=== PATIENT | male | born 1950 | race Caucasian/White ===

== ENCOUNTER → 2019-11-22 | Outpatient (CLI) | payer MEDICARE, OTHER ==
--- NOTE | 2019-11-22 15:27 | Diagnostic Imaging Report ---
EXAMINATION: CT Chest without contrast (lung screening). TECHNIQUE: Multiple contiguous axial images were obtained through the chest without the use of intravenous contrast according to lung cancer screening protocol. All CT scans use one or more of the following dose optimizing techniques: automated exposure control, MA and/or KvP adjustment based on a patient size and exam type, or iterative reconstruction. HISTORY: 30 pack year history of smoking. COMPARISON: None available. FINDINGS: There is no edema or pneumonia. No pleural effusion. No pneumothorax. No suspicious nodules. Heart size is normal. No pericardial effusion. Aorta is normal in caliber. There is no axillary or supraclavicular lymphadenopathy. There is no mediastinal lymphadenopathy. There are mild coronary artery calcifications. Limited views of the upper abdomen are normal. There are no suspicious osseus lesions. IMPRESSION: 1. No suspicious pulmonary nodules. LUNG-RADS CATEGORY: 1 MODIFIER: None. OTHER SIGNIFICANT FINDINGS: None. Dictated by: Dictated on workstation # [id number]
== END ==
LOC: RAD 11:06
PROVIDERS: ATTEND Family Medicine
DX: Z12.2 Encounter for screening for malignant neoplasm of respiratory organs (principal); Z87.891 Personal history of nicotine dependence

== ENCOUNTER 2020-12-14 05:32 | Outpatient (RCR) | payer MEDICARE, OTHER ==
[~2020-12-14] VITALS: Ht 165.1 cm; Wt 89.4 kg
[~2020-12-14 05:32] MED LIST: NAPR-1070 PO
== END 2020-12-14 14:37 | disposition home or self-care (01) ==
LOC: PREOP 05:32
PROVIDERS: ATTEND Surgery
DX: Z01.812 Encounter for preprocedural laboratory examination (principal); K29.50 Unspecified chronic gastritis without bleeding; R19.5 Other fecal abnormalities; Z20.822 Contact with and (suspected) exposure to COVID-19
CPT/HCPCS: 87635

== ENCOUNTER 2020-12-18 09:12 | Day surgery (SDC) | payer MEDICARE, OTHER ==
[~2020-12-18] VITALS: Ht 165.1 cm; Wt 89.4 kg
[2020-12-18] MEDS ORDERED: LACTATED RINGERS 1,000 ML IV STA (09:18)
[2020-12-18] MEDS ORDERED: LACTATED RINGERS 1,000 ML IV ONE (09:19)
[2020-12-18] MEDS ORDERED: HURRICAINE EXT TUBE (BENZOCAINE) XX PRN (09:30)
[2020-12-18 09:55] VITALS: BP 145/77
[2020-12-18] MEDS ORDERED: PROPOFOL INJECTION 50 ML IV ONE (10:10)
--- NOTE | 2020-12-18 10:13 | Progress Note-Pre Operative ---
Pre-Operative Progress Note H&P Reviewed The H&P was reviewed, patient examined and no changes noted. Time Seen by Provider: 10:09 Date H&P Reviewed: Dec 18, 2020 Time H&P Reviewed: 10:10 Pre-Operative Diagnosis: Chronic Gastritis, +CologADRIEL Cruz DO Dec 18, 2020 10:13
[2020-12-18] MEDS ORDERED: MIDAZOLAM 2 MG/2 ML (VERSED) VIAL ONE (10:18)
[2020-12-18] MEDS ORDERED: HURRICAINE EXT TUBE (BENZOCAINE) ONE (10:19)
[2020-12-18] MEDS ORDERED: proPOfol 200 MG/20 ML (DIPRIVAN) VIAL IV ONE (10:51)
[2020-12-18 11:10] VITALS: BP 126/76
[2020-12-18 11:15] VITALS: BP 124/73
[2020-12-18 11:20] VITALS: BP_SYST 121; BP_SYST 126; BP_DIAS 74; BP_DIAS 76
[2020-12-18 11:46] VITALS: BP 146/83
[2020-12-18 11:47] VITALS: BP 146/83
--- NOTE | 2020-12-18 11:56 | Progress Note-Post Operative ---
Post-Operative Progess Note Surgeon (s)/Test Pilot (s) Surgeon ADRIEL VELIZ DO Test Pilot: ADRIANE Rios Pre-Operative Diagnosis Chronic Gastritis, +Cologuard Post-Operative Diagnosis Duodenal ulcer Gastritis Sliding Hiatal hernia Polyps int hemorrhoids Procedure & Operative Findings Date of Procedure 12/18/20 Procedure Performed/Findings EGD with bx Colon with snare Colon with hot bx Anesthesia Type IV sedation by POLICE ACADEMY PROGRAM COORDINATOR Estimated Blood Loss Estimated blood loss (mL): scant Specimens/Packing Specimens Removed duodenal bx antral bx body of stomach bx GE jxn bx transvers colon polypx2 asc colon polyp sigmoid colon polyp rectal polyp ADRIEL VELIZ DO Dec 18, 2020 11:56
[2020-12-18] MEDS ORDERED: PANT40TA2 PO (12:00)
[2020-12-18] MEDS ORDERED: SUCR1TAB36 PO (12:00)
--- NOTE | 2020-12-18 12:01 | Endoscopy Discharge Instruct ---
Endo Procedure/Findings Findings 1.: Duodenal Ulcer, Gastritis 2.: Hiatal Hernia 3.: Polyp 4.: Internal Hemorrhoids Discharge Instructions - Activity: You might feel a little sleepy until tomorrow. This is due to the medicine you received to relax you. Until tomorrow, you should: NOT drive a car, operate machinery or power tools. NOT drink any alcoholic beverages. NOT make any important decisions or sign importortant papers. Do not return to work until tomorrow, unless otherwise instructed. Resume previous activities tomorrow. Diet: Start by taking liquids. If you tolerate liquids, advance to solid food. 1.: Colonoscopy in 1 year 2.: EGD in 6-8 weeks Notify Physician - If you experience excessive bleeding, unusual abdominal pain, fever, or chest pain, contact your doctor immediately. ADRIEL VELIZ DO Dec 18, 2020 12:01
--- NOTE | 2020-12-18 13:14 | Anesthesia-General Post-Op ---
MAC Patient Condition Mental Status/LOC: Same as Preop Cardiovascular: Satisfactory Nausea/Vomiting: Absent Respiratory: Satisfactory Pain: Controlled Complications: Absent Post Op Complications Complications None Follow Up Care/Instructions Patient Instructions None needed. Anesthesiology Discharge Order Discharge Order Patient is doing well, no complaints, stable vital signs, no apparent adverse anesthesia problems. No complications reported per nursing. KAILA KEARNEY CRNA Dec 18, 2020 13:14
--- NOTE | 2020-12-18 23:31 | OPERATIVE REPORT ---
DATE OF SERVICE: PREOPERATIVE DIAGNOSES: 1. Chronic gastritis. 2. Positive Cologuard. POSTOPERATIVE DIAGNOSES: Duodenal ulcer, gastritis, sliding hiatal hernia as well as multiple colon polyps and internal hemorrhoids. PROCEDURES: 1. EGD with biopsy. 2. Colonoscopy with snare polypectomy. 3. Colonoscopy with hot biopsy. SURGEON: Matt Escalona, DO GEOTHERMAL POWERPLANT MECHANIC HELPER: Justin Hall, MS3. ANESTHESIA: IV sedation by the GYM SUPERVISOR. SPECIMEN: Biopsy from the duodenum, biopsy of the antrum, biopsy of body of stomach and biopsy of the GE junction as well as 2 transverse colon polyp, one ascending colon polyp, one sigmoid polyp and one rectal polyp. BLOOD LOSS: Scant. FLUIDS: Per anesthesia. POSTOPERATIVE CONDITION: Stable. INDICATION FOR PROCEDURE: The patient is a 70-year-old male, who has been having chronic gastritis, reflux symptoms, needed a workup as well, he had a positive Cologuard, so needed a colonoscopy. FINDINGS: The patient had what looked like an ulcer in the duodenum, had some gastritis and sliding hiatal hernia. In the colon, he had multiple polyps and some internal hemorrhoids. PROCEDURE NOTE: After informed consent was obtained, the patient was brought to the endoscopy suite, placed in bed in left lateral decubitus position. He was administered IV sedation by the GYM SUPERVISOR who then monitored his vitals the entire time, heart rate, blood pressure and pulse ox and the scope was inserted, started with the EGD, placed the scope down the mouth through the esophagus and into the stomach, noted some inflammation in the antrum, pushing the duodenum and noted a lot of inflammation of duodenum, took pictures and then did biopsies of what looked like an ulcer in the duodenum, pulled back and did a biopsy of the antrum. Retroflexed the scope, saw small sliding hiatal hernia and then did a biopsy of the body of stomach and then looked like there were some changes at the GE junction, so pulled up and did 2 biopsies of the GE junction, then pushed the scope back into the stomach, suctioned all the air out and then pulled the scope up the esophagus and out the mouth. Switched camera, switched gloves, went down below, started the colonoscopy, started pushing in and found 2 polyps in the transverse colon. These were relatively large pedunculated able to remove these with a snare and then continued down in the ascending colon, saw a very flat polyp, able to get this with the hot biopsy, removed in 2 bites with a hot biopsy. Final able to get to the cecum, took a picture of appendiceal orifice, noted the ileocecal valve and then slowly withdrew the scope insufflating the circumferential maher. Looking at the cecum, up the ascending colon to the hepatic flexure, then down the transverse colon, to the splenic flexure, into the descending colon and down into the sigmoid. In the sigmoid, saw another very flat polyp, I elected to do another hot biopsy of this and then in the rectum, saw a larger polyp, wanted to completely remove this, so did another snare polypectomy, saw what looked like flat polyps, not sure whether these were adenomas or hyperplastic, but took a picture of these in the rectum as well. Retroflexed in the rectal vault and saw some small internal hemorrhoids. I finally removed the scope. The patient tolerated the procedure. He was recovered in endoscopy suite. Job ID: [id number] DocumentID: [id number] Dictated Date: 12/18/2020 22:28:45 Him Assistant Date: 12/18/2020 23:30:56 Dictated By: MATT ESCALONA DO MTDJasmin
== END 2020-12-18 12:20 | disposition home or self-care (01) ==
LOC: ENDO 09:12
PROVIDERS: ATTEND Surgery
DX: D12.2 Benign neoplasm of ascending colon (principal); D12.3 Benign neoplasm of transverse colon; K63.5 Polyp of colon; K62.1 Rectal polyp; K29.90 Gastroduodenitis, unspecified, without bleeding; K44.9 Diaphragmatic hernia without obstruction or gangrene; K64.8 Other hemorrhoids; K26.9 Duodenal ulcer, unspecified as acute or chronic, without hemorrhage or perforation; Z80.8 Family history of malignant neoplasm of other organs or systems; Z80.3 Family history of malignant neoplasm of breast; F17.210 Nicotine dependence, cigarettes, uncomplicated; M19.90 Unspecified osteoarthritis, unspecified site

== ENCOUNTER → 2021-02-20 | Outpatient (CLI) | payer MEDICARE, OTHER ==
[~2021-02-20] MED LIST changes: +PANT40TA2 PO; +SUCR1TAB36 PO
--- NOTE | 2021-02-20 14:42 | Diagnostic Imaging Report ---
EXAMINATION: CT chest without contrast (lung screening). TECHNIQUE: Multiple contiguous axial images were obtained through the chest without the use of intravenous contrast according to lung cancer screening protocol. All CT scans use one or more of the following dose optimizing techniques: automated exposure control, MA and/or KvP adjustment based on patient size and exam type or iterative reconstruction. HISTORY: 50 pack year history of smoking. COMPARISON: 11/22/2019. FINDINGS: There is no edema or pneumonia. No pleural effusion. No pneumothorax. No suspicious nodules. There is no axillary or supraclavicular lymphadenopathy. There is no mediastinal lymphadenopathy. Heart size is normal. There are mild coronary artery calcifications. No pericardial effusion. Aorta is normal in caliber. Limited views of the upper abdomen are unremarkable. There are no suspicious osseous lesions. IMPRESSION: 1. No suspicious pulmonary nodules. LUNG-RADS CATEGORY: 1 MODIFIER: None. Dictated by: Dictated on workstation # [id number]
== END ==
LOC: RAD 13:04
PROVIDERS: ATTEND Family Medicine
DX: Z12.2 Encounter for screening for malignant neoplasm of respiratory organs (principal); F17.210 Nicotine dependence, cigarettes, uncomplicated
CPT/HCPCS: 71271

== ENCOUNTER 2021-04-12 05:32 | Outpatient (RCR) | payer MEDICARE, OTHER ==
[~2021-04-12] VITALS: Ht 165.1 cm; Wt 89.4 kg
== END 2021-04-12 13:05 | disposition home or self-care (01) ==
LOC: PREOP 05:32
PROVIDERS: ATTEND Surgery
DX: Z01.812 Encounter for preprocedural laboratory examination (principal); K26.9 Duodenal ulcer, unspecified as acute or chronic, without hemorrhage or perforation; Z20.822 Contact with and (suspected) exposure to COVID-19
CPT/HCPCS: 87635

== ENCOUNTER 2021-04-16 11:18 | Day surgery (SDC) | payer MEDICARE, OTHER ==
[2021-04-16] VITALS (10 sets, daily range): BP systolic 117–154; BP diastolic 55–93
[~2021-04-16] VITALS: Ht 165.1 cm; Wt 89.4 kg
[2021-04-16] MEDS ORDERED: LACTATED RINGERS 1,000 ML IV STA (11:32)
--- NOTE | 2021-04-16 11:44 | Progress Note-Pre Operative ---
Pre-Operative Progress Note H&P Reviewed The H&P was reviewed, patient examined and no changes noted. Time Seen by Provider: 11:42 Date H&P Reviewed: Apr 16, 2021 Time H&P Reviewed: 11:42 Pre-Operative Diagnosis: Hx of duodenal ulcer ADRIEL VELIZ DO Apr 16, 2021 11:44
[2021-04-16] MEDS ORDERED: HURRICAINE EXT TUBE (BENZOCAINE) XX PRN (11:45)
[2021-04-16] MEDS ORDERED: PROPOFOL INJECTION 50 ML IV ONE (12:24)
[2021-04-16] MEDS ORDERED: MIDAZOLAM 2 MG/2 ML (VERSED) VIAL ONE (12:24)
--- NOTE | 2021-04-16 12:48 | Progress Note-Post Operative ---
Post-Operative Progess Note Surgeon (s)/Full Service Supervisor (s) Surgeon ADRIEL VELIZ DO Full Service Supervisor: none Pre-Operative Diagnosis Hx of duodenal ulcer Post-Operative Diagnosis Duodenitis Gastritis Hiatal Hernia Esophagitis Procedure & Operative Findings Date of Procedure 04/16/21 Procedure Performed/Findings PROCEDURE NOTE: After informed consent was obtained, the patient was brought to the endoscopy suite, placed in bed in left lateral decubitus position. He was administered IV sedation by the PLUMBERS AND TOP HELPERS who then monitored her vitals the entire time, heart rate, blood pressure and pulse ox and the scope was inserted down the mouth through the esophagus into the stomach. On the way down, noted some mild esophagitis, took a picture, pushed into the stomach, pushed past the antrum into the duodenum. Duodenum had moderate to severe duodenits; elected to do a biopsy of this. Pulled back and did a biopsy of antrum, then retroflexed the scope, saw hiatal hernia, took a picture of this and then pulled the scope into the GE junction, took another picture of the hiatal hernia and then did a biopsy of the GE junction. Pushed the scope back into the stomach, suctioned all the air out of the stomach and then pulled the scope up the esophagus, took some pictures in the esophagus. There were no ulcers and at this point pulled the scope up the esophagus and out the mouth. The patient tolerated the procedure, and he was recovered in the endoscopy suite. Anesthesia Type IV sedation by PLUMBERS AND TOP HELPERS Estimated Blood Loss Estimated blood loss (mL): scant Specimens/Packing Specimens Removed duodenal bx antral bx body of stomach bx GE jxn bx ADRIEL VELIZ DO Apr 16, 2021 12:48
--- NOTE | 2021-04-16 12:49 | Endoscopy Discharge Instruct ---
Endo Procedure/Findings Findings 1.: Other Findings (duodenitis) 2.: Gastritis 3.: Hiatal Hernia Discharge Instructions - Activity: You might feel a little sleepy until tomorrow. This is due to the medicine you received to relax you. Until tomorrow, you should: NOT drive a car, operate machinery or power tools. NOT drink any alcoholic beverages. NOT make any important decisions or sign importortant papers. Do not return to work until tomorrow, unless otherwise instructed. Resume previous activities tomorrow. Diet: Start by taking liquids. If you tolerate liquids, advance to solid food. 1.: EGD in 6-8 weeks Notify Physician - If you experience excessive bleeding, unusual abdominal pain, fever, or chest pain, contact your doctor immediately. ADRIEL VELIZ DO Apr 16, 2021 12:49
--- NOTE | 2021-04-16 13:26 | Anesthesia-General Post-Op ---
MAC Patient Condition Mental Status/LOC: Same as Preop Cardiovascular: Satisfactory Nausea/Vomiting: Absent Respiratory: Satisfactory Pain: Controlled Complications: Absent Post Op Complications Complications None Follow Up Care/Instructions Patient Instructions None needed. Anesthesiology Discharge Order Discharge Order Patient is doing well, no complaints, stable vital signs, no apparent adverse anesthesia problems. No complications reported per nursing. TC MEJIA CRNA Apr 16, 2021 13:25
== END 2021-04-16 14:00 | disposition home or self-care (01) ==
LOC: ENDO 11:18
PROVIDERS: ATTEND Surgery
DX: K29.90 Gastroduodenitis, unspecified, without bleeding (principal); K44.9 Diaphragmatic hernia without obstruction or gangrene; K21.00 Gastro-esophageal reflux disease with esophagitis, without bleeding; L29.0 Pruritus ani; M19.90 Unspecified osteoarthritis, unspecified site; F17.210 Nicotine dependence, cigarettes, uncomplicated; Z79.899 Other long term (current) drug therapy
CPT/HCPCS: 88305

== ENCOUNTER 2021-12-26 13:12 | Inpatient (IN) | payer MEDICARE, OTHER ==
[~2021-12-26] VITALS: Ht 170 cm; Wt 85.0 kg
[2021-12-26] MEDS ORDERED: FAMOTIDINE 20MG/2ML IV (PEPCID) IV STA (13:34)
--- NOTE | 2021-12-26 13:39 | ED Chest Pain ---
General Chief Complaint: Chest Pain Stated Complaint: CHEST PAIN Nursing Triage Note: PT AMB TO RM 6 WITH COMPLAINT OF INTERMITTENT CP THAT STARTED 4-5 DAYS AGO. STATES WENT TO [facility] WALK[facility] AND WAS SENT OVER TO ER FOR FURTHER EVALUATION. Source: patient Exam Limitations: no limitations History of Present Illness Date Seen by Provider: Dec 26, 2021 Time Seen by Provider: 13:24 Initial Comments Patient to the ER by private conveyance chief complaint of chest pain intermittent substernal nonradiating for the last 4 to 5 days. He says sometimes his shoulders ache bilaterally. No jaw pain no numbness or tingling or paresthesias. No shortness of air but has had nasal congestion sore throat and a mild nonproductive cough. His episodes usually last a couple hours of pain. This present one is going on for an hour and a half prior to arrival. He did not take anything for it. He does not have a history of hypertension, hyperlipidemia, hypothyroidism, diabetes or prior coronary artery disease. He is followed by [facility]. He does smoke a pack of cigarettes per day. He has had clinic pulmonary function testing and no history of COPD. No diarrhea dysuria or vomiting. He does have some nausea. He has a history of GERD but no anxiety. No trauma to his chest. Allergies and Home Medications Allergies Coded Allergies: No Known Drug Allergies (Unverified , 12/11/20) Patient Home Medication List Home Medication List Reviewed: Yes Pantoprazole Sodium (Protonix) 40 Mg Tablet.dr, 40 MG PO DAILY Prescribed by: ADRIEL VELIZ on 12/18/20 1200 Sucralfate (Carafate) 1 Gm Tablet, 1 GM PO ACHS Prescribed by: ADRIEL VELIZ on 12/18/20 1200 Review of Systems Review of Systems Constitutional: No chills, No fever, No malaise EENTM: No Blurred Vision, No Double Vision Respiratory: Denies Cough; Shortness of Air Cardiovascular: Chest Pain; Denies Lightheadedness, Denies Palpitations, Denies Syncope Gastrointestinal: Denies Constipated, Denies Diarrhea, Denies Nausea Genitourinary: Denies Burning, Denies Discharge, Denies Drainage Musculoskeletal: No back pain, No joint pain All Other Systems Reviewed Negative Unless Noted: Yes Past Tdnngmd-Iesvyk-Didgtn Hx Patient Social History Tobacco Use?: Yes Tobacco type used: Cigarettes Smoking Status: Current Everyday Smoker Use of E-Cig and/or Vaping dev: No Substance use?: No Alcohol Use?: No Pt feels they are or have been: No Immunizations Up To Date Influenza Vaccine Up-to-Date: Yes; Up-to-Date First/Initial COVID19 Vaccinat: 2020 Second COVID19 Vaccination Andrew: 2020 Third COVID19 Vaccination Date: 2020 COVID19 Vaccine Surg Rn: RADHA Past Medical History Surgeries: Yes Testicular Respiratory: No Cardiac: No Neurological: No Sexually Transmitted Disease: No HIV/AIDS: No Genitourinary: No Gastrointestinal: No Musculoskeletal: No Endocrine: No HEENT: Yes (DENTURES/GLASSES) Cancer: No Psychosocial: No Integumentary: No Blood Disorders: No Physical Exam Vital Signs Vital Signs - First Documented 12/26/21 13:14 Pulse 71 Resp 27 B/P (MAP) 156/92 (113) Pulse Ox 98 O2 Delivery Room Air Capillary Refill : Less Than 3 Seconds Height, Weight, BMI Height: '" Weight: lbs. oz. kg; 31.00 BMI Method: General Appearance: No Apparent Distress, WD/WN HEENT: PERRL/EOMI, Pharynx Normal, Moist Mucous Membranes Neck: Full Range of Motion, Normal Inspection Respiratory: Chest Non Tender, Lungs Clear, Normal Breath Sounds, No Accessory Muscle Use, No Respiratory Distress Cardiovascular: Regular Rate, Rhythm, Normal Peripheral Pulses Gastrointestinal: Normal Bowel Sounds, Non Tender, Soft Extremity: Normal Capillary Refill, Normal Inspection, No Pedal Edema Neurologic/Psychiatric: Alert, Oriented x3 Skin: Normal Color, Warm/Dry Progress/Results/Core Measures Results/Orders Lab Results Laboratory Tests Test 12/26/21 13:05 12/26/21 13:35 Range/Units White Blood Count 7.7 4.3-11.0 10^3/uL Red Blood Count 4.65 4.30-5.52 10^6/uL Hemoglobin 15.8 13.3-17.7 g/dL Hematocrit 45 40-54 % Mean Corpuscular Volume 96 80-99 fL Mean Corpuscular Hemoglobin 34 25-34 pg Mean Corpuscular Hemoglobin Concent 35 32-36 g/dL Red Cell Distribution Width 11.9 10.0-14.5 % Platelet Count 206 130-400 10^3/uL Mean Platelet Volume 8.9 L 9.0-12.2 fL Immature Granulocyte % (Auto) 0 % Neutrophils (%) (Auto) 57 42-75 % Lymphocytes (%) (Auto) 29 12-44 % Monocytes (%) (Auto) 6 0-12 % Eosinophils (%) (Auto) 7 0-10 % Basophils (%) (Auto) 1 0-10 % Neutrophils # (Auto) 4.4 1.8-7.8 10^3/uL Lymphocytes # (Auto) 2.3 1.0-4.0 10^3/uL Monocytes # (Auto) 0.5 0.0-1.0 10^3/uL Eosinophils # (Auto) 0.5 H 0.0-0.3 10^3/uL Basophils # (Auto) 0.1 0.0-0.1 10^3/uL Immature Granulocyte # (Auto) 0.0 0.0-0.1 10^3/uL Prothrombin Time 13.3 12.2-14.7 SEC INR Comment 1.0 0.8-1.4 Activated Partial Thromboplast Time 30 24-35 SEC D-Dimer 0.33 0.00-0.49 UG/ML Sodium Level 140 135-145 MMOL/L Potassium Level 4.5 3.6-5.0 MMOL/L Chloride Level 108 H 98-107 MMOL/L Carbon Dioxide Level 20 L 21-32 MMOL/L Anion Gap 12 5-14 MMOL/L Blood Urea Nitrogen 12 7-18 MG/DL Creatinine 1.02 0.60-1.30 MG/DL Estimat Glomerular Filtration Rate 78 BUN/Creatinine Ratio 12 Glucose Level 112 H 70-105 MG/DL Calcium Level 9.8 8.5-10.1 MG/DL Corrected Calcium 9.5 8.5-10.1 MG/DL Magnesium Level 2.2 1.6-2.4 MG/DL Total Bilirubin 0.6 0.1-1.0 MG/DL Aspartate Amino Transf (AST/SGOT) 25 5-34 U/L Alanine Aminotransferase (ALT/SGPT) 30 0-55 U/L Alkaline Phosphatase 61 40-136 U/L Myoglobin 52.9 10.0-92.0 NG/ML Troponin I 0.544 *H <0.028 NG/ML C-Reactive Protein High Sensitivity 0.47 0.00-0.50 MG/DL B-Type Natriuretic Peptide 26.3 <100.0 PG/ML Total Protein 7.8 6.4-8.2 GM/DL Albumin 4.4 3.2-4.5 GM/DL Lipase 20 8-78 U/L Influenza Type A (RT-PCR) Not Detected Not Detecte Influenza Type B (RT-PCR) Not Detected Not Detecte SARS-CoV-2 RNA (RT-PCR) Not Detected Not Detecte My Orders Orders - ASHLEY PULLIAM Cbc With Automated Diff (12/26/21 13:34) Magnesium (12/26/21 13:34) Chest 1 View, Ap/Pa Only (12/26/21 13:34) Ekg Tracing (12/26/21 13:34) Comprehensive Metabolic Panel (12/26/21 13:34) Myoglobin Serum (12/26/21 13:34) Protime With Inr (12/26/21 13:34) Partial Thromboplastin Time (12/26/21 13:34) O2 (12/26/21 13:34) Monitor-Rhythm Ecg Trace Only (12/26/21 13:34) Ed Iv/Invasive Line Start (12/26/21 13:34) Lipase (12/26/21 13:34) Bnp Andre (12/26/21 13:34) Troponin I [place] (12/26/21 13:34) Nitroglycerin 0.4 Mg Btl 25's (Nitrostat (12/26/21 13:45) Aspirin Chewable Tablet (Baby Aspirin Ch (12/26/21 13:45) Lidocaine 2% Viscous 15 Ml (Xylocaine Vi (12/26/21 13:45) Antacid Suspension (Mylanta Suspension (12/26/21 13:45) Famotidine Injection (Pepcid Injection) (12/26/21 13:34) Covid 19 Inhouse Test (12/26/21 13:34) Influenza A And B By Pcr (12/26/21 13:34) Hs C Reactive Protein (12/26/21 13:34) Ondansetron Injection (Zofran Injectio (12/26/21 13:45) Fibrin Degradation Products (12/26/21 13:05) Enoxaparin Injection (Lovenox Injectio (12/26/21 14:45) Clopidogrel Tablet (Plavix Tablet) (12/26/21 14:45) Medications Given in ED Vital Signs/I&O 12/26/21 13:14 Pulse 71 Resp 27 B/P (MAP) 156/92 (113) Pulse Ox 98 O2 Delivery Room Air Blood Pressure Mean: 113 Progress Progress Note : Time: 14:45 Progress Note Patient rated his pain is modest 4 out of 10, 6 out of 10 at its worst. Gave him a GI cocktail which brought his pain down to a 2 out of 10. Elevated troponin makes it suspicious for an NSTEMI and we discussed staying in the hospi jo to get cardiac catheterization and he is in agreement with this plan. We discussed the case with Dr. Oleary who recommends Plavix, Lovenox, aspirin and n.p.o. until he sees him. Initial ECG Impression Date: Dec 26, 2021 Initial ECG Impression Time: 13:18 Initial ECG Rate: 63 Initial ECG Rhythm: Normal Sinus Initial ECG Intervals: Normal Initial ECG Impression: Normal, Nonspecific Changes Comment Normal sinus rhythm without clinically relevant ST elevation or depression. LVH noticed. Departure Communication (Admissions) Time/Spoke to Admitting Phy: 14:40 Discussed the case with Dr. Masno who agrees with cardiac consultation and admitting the patient to the ICU for management. Time/Spoke to Consulting Phy: 14:35 Discussed the case with Dr. Oleary who recommends n.p.o. until after he sees h im. Plavix 300 mg. Aspirin 325 mg. Lovenox weight-based 1 mg/kg. Impression Primary Impression: NSTEMI (non-ST elevated myocardial infarction) Disposition: ADMITTED INPATIENT Condition: Stable Admissions Decision to Admit Reason: Admit from ER (General) Decision to Admit/Date: Dec 26, 2021 Time/Decision to Admit Time: 14:30 Departure-Patient Inst. Referrals: LIGIA LAYTON MD (PCP/Family) Primary Care Physician ASHLEY PULLIAM Dec 26, 2021 13:39
[2021-12-26 13:42] LABS: BASOPHILS # (AUTO) 0.1 10^3/uL (0.0-0.1); BASOPHILS % (AUTO) 1 % (0-10); EOSINOPHILS # (AUTO) 0.5 10^3/uL (0.0-0.3); EOSINOPHILS % (AUTO) 7 % (0-10); HEMATOCRIT 45 % (40-54); HEMOGLOBIN 15.8 g/dL (13.3-17.7); LYMPHOCYTES # (AUTO) 2.3 10^3/uL (1.0-4.0); LYMPHOCYTES % (AUTO) 29 % (12-44); MEAN CORPUSCULAR HEMOGLOBIN 34 pg (25-34); MEAN CORPUSCULAR HGB CONC 35 g/dL (32-36); MEAN CORPUSCULAR VOLUME 96 fL (80-99); MEAN PLATELET VOLUME 8.9 fL (9.0-12.2); MONOCYTES # (AUTO) 0.5 10^3/uL (0.0-1.0); MONOCYTES % (AUTO) 6 % (0-12); NEUTROPHILS # (AUTO) 4.4 10^3/uL (1.8-7.8); NEUTROPHILS % (AUTO) 57 % (42-75); PLATELET COUNT 206 10^3/uL (130-400); WHITE BLOOD COUNT 7.7 10^3/uL (4.3-11.0)
[2021-12-26] MEDS ORDERED: ANTACID SUSP 30 ML UDC (MYLANTA) PO ONE (13:45)
[2021-12-26] MEDS ORDERED: LIDOCAINE 2% VISCOUS 15 ML UDC PO ONE (13:45)
[2021-12-26] MEDS ORDERED: NITROGLYCERIN 0.4 MG SL TABS BTL 25'S SL PRN ×2 (13:45→16:45)
[2021-12-26] MEDS ORDERED: ASPIRIN 81 MG CHEW (CHILDREN'S ASA) PO ONE (13:45)
[2021-12-26] MEDS ORDERED: ONDANSETRON 4 MG/2 ML (SDV) Z0FRAN IVP ONE (13:45)
[2021-12-26 13:50] LABS: ALBUMIN 4.4 GM/DL (3.2-4.5)
[2021-12-26 13:51] LABS: POTASSIUM 4.5 MMOL/L (3.6-5.0)
[2021-12-26 13:52] LABS: CALCIUM 9.8 MG/DL (8.5-10.1)
[2021-12-26 13:53] LABS: TOTAL PROTEIN 7.8 GM/DL (6.4-8.2)
[2021-12-26 13:54] LABS: FIBRIN DEGRADATION PRODUCTS 0.33 UG/ML (0.00-0.49); PROTHROMBIN TIME PATIENT 13.3 SEC (12.2-14.7)
[2021-12-26 13:55] LABS: BILIRUBIN,TOTAL 0.6 MG/DL (0.1-1.0)
[2021-12-26 13:57] LABS: CREATININE SERUM 1.02 MG/DL (0.60-1.30)
[2021-12-26 13:59] LABS: MAGNESIUM 2.2 MG/DL (1.6-2.4)
--- NOTE | 2021-12-26 14:10 | Diagnostic Imaging Report ---
INDICATION: Chest pain. AP view of the chest is obtained. FINDINGS: Heart size and pulmonary vascularity are within normal limits, and the lungs are clear, bilaterally. IMPRESSION: Unremarkable chest. Dictated by: Dictated on workstation # [id number]
[2021-12-26] MEDS ORDERED: CLOPIDOGREL 300 MG (PLAVIX) TABLET PO ONE ×2 (14:45→18:37)
[2021-12-26] MEDS ORDERED: ENOXAPARIN 80 MG/0.8 ML (LOVENOX) SYR SC ONE (14:45)
[2021-12-26 15:45] VITALS: BP 142/89
--- NOTE | 2021-12-26 15:49 | Consultation-Cardiology ---
HPI-Cardiology Cardiology Consultation: Date of Consultation 12/26/21 Time Seen by a Provider: 15:50 Date of Admission 12-26-21 Attending Physician Sari Mason MD Admitting Physician Flaquita Trevizo MD Consulting Physician Ernesto Oleary MD HPI: Chief Complaint: NSTEMI Mr. Cope is a 71 yr old male admitted to ICU 4 from the ED with NSTEMI. He reports approx 4 days day ago he developed chest pressure, tightness across his chest. The discomfort would come on without r/t activity. He reports the pain would last from 3 minutes to as long as an hour and then resolve. He denies any assoc symptoms of n/v or diaphoresis. No c/o SOB. No c/o palpitations, syncope or near syncope. He reports he received nitro in the ED, which has resulted in complete resolution of his chest pain at this time. No c/o LE swelliing. He is currently pain free. Review of Systems-Cardiology Review of Systems Constitutional: No chills, No fever, No malaise, No tiredness Eyes: No vision change Ears/Nose/Throat: No epistaxis, No recent hearing loss Respiratory: As described under HPI Cardiovascular: As described under HPI Gastrointestinal: As described under HPI Genitourinary: No dysuria, No hematuria Musculoskeletal: no symptoms reported Skin: No rash on exposed areas, No ulcerations on exposed areas Psychiatric/Neurological: No anxiety, No depression, No seizure, No focal weakness, No syncope Hematologic: No bleeding abnormalities OIN-Lxfxas-Yopwrq Hx Patient Social History Smoking Status: Current Everyday Smoker 2nd Hand Smoke Exposure: No Have you traveled recently?: No Alcohol Use?: No Pt feels they are or have been: No Tobacco type used: Cigarettes Past Medical History PMH As described under Assessment. Family Medical History Family Medical History: He reports brothers x 2 with heart dz Allergies and Home Medications Allergies Coded Allergies: No Known Drug Allergies (Unverified , 12/11/20) Patient Home Medication List Pantoprazole Sodium (Protonix) 40 Mg Tablet.dr, 40 MG PO DAILY Prescribed by: ADRIEL VELIZ on 12/18/20 1200 Sucralfate (Carafate) 1 Gm Tablet, 1 GM PO ACHS Prescribed by: ADRIEL VELIZ on 12/18/20 1200 Physical Exam-Cardiology Physical Exam Vital Signs/I&O 12/26/21 12/26/21 12/26/21 12/27/21 21:00 22:00 23:00 00:00 Pulse 60 59 55 67 Resp 20 13 13 20 B/P (MAP) 151/80 145/78 143/85 129/91 Pulse Ox 98 97 97 99 O2 Delivery Room Air Room Air Room Air Room Air 12/27/21 12/27/21 12/27/21 12/27/21 01:00 01:00 02:00 03:00 Pulse 60 60 76 63 Resp 18 19 30 B/P (MAP) 133/74 136/79 126/63 Pulse Ox 97 97 94 O2 Delivery Room Air Room Air Room Air 12/27/21 12/27/21 12/27/21 12/27/21 04:00 05:00 06:00 07:28 Temp 36.4 Pulse 52 55 54 Resp 16 20 18 B/P (MAP) 123/61 125/57 119/63 Pulse Ox 96 96 97 O2 Delivery Room Air Room Air Room Air 12/27/21 00:00 Intake Total 0 ml Output Total 250 ml Balance -250 ml Capillary Refill : Less Than 3 Seconds Constitutional: AAO x 3, well-developed, well-nourished HEENT: PERRL, hearing is well preserved, oral hygience is good Neck: No carotid bruit; carotid pulses are 2 + bilaterally Respiratory: No accessory muscle use, No respiratory distress; chest expansion is symmetric, chest is bilaterally symmetric, lungs clear to auscultation Cardiovascular: regular rate-rhythm; No JVD; S1 and S2 Gastrointestinal: No tender; soft, round, audible bowel sounds Extremities: no lower extremity edema bilateral Neurologic/Psychiatric: other (moves all extremities) Skin: No rash on exposed areas, No ulcerations on exposed areas Data Review Labs Laboratory Tests 12/26/21 13:05: White Blood Count 7.7, Red Blood Count 4.65, Hemoglobin 15.8, Hematocrit 45, Mean Corpuscular Volume 96, Mean Corpuscular Hemoglobin 34, Mean Corpuscular Hemoglobin Concent 35, Red Cell Distribution Width 11.9, Platelet Count 206, Mean Platelet Volume 8.9L, Immature Granulocyte % (Auto) 0, Neutrophils (%) (Auto) 57, Lymphocytes (%) (Auto) 29, Monocytes (%) (Auto) 6, Eosinophils (%) (Auto) 7, Basophils (%) (Auto) 1, Neutrophils # (Auto) 4.4, Lymphocytes # (Auto) 2.3, Monocytes # (Auto) 0.5, Eosinophils # (Auto) 0.5H, Basophils # (Auto) 0.1, Immature Granulocyte # (Auto) 0.0, Prothrombin Time 13.3, INR Comment 1.0, Activated Partial Thromboplast Time 30, D-Dimer 0.33, Sodium Level 140, Potassium Level 4.5, Chloride Level 108H, Carbon Dioxide Level 20L, Anion Gap 12, Blood Urea Nitrogen 12, Creatinine 1.02, Estimat Glomerular Filtration Rate 78, BUN/Creatinine Ratio 12, Glucose Level 112H, Calcium Level 9.8, Corrected Calcium 9.5, Magnesium Level 2.2, Total Bilirubin 0.6, Aspartate Amino Transf (AST/SGOT) 25, Alanine Aminotransferase (ALT/SGPT) 30, Alkaline Phosphatase 61, Myoglobin 52.9, Troponin I 0.544*H, C-Reactive Protein High Sensitivity 0.47, B- Type Natriuretic Peptide 26.3, Total Protein 7.8, Albumin 4.4, Lipase 20 12/26/21 13:35: Influenza Type A (RT-PCR) Not Detected, Influenza Type B (RT-PCR) Not Detected, SARS-CoV-2 RNA (RT-PCR) Not Detected 12/27/21 04:23: White Blood Count 7.7, Red Blood Count 4.26L, Hemoglobin 14.2, Hematocrit 41, Mean Corpuscular Volume 96, Mean Corpuscular Hemoglobin 33, Mean Corpuscular Hemoglobin Concent 35, Red Cell Distribution Width 12.0, Platelet Count 178, Mean Platelet Volume 9.3, Immature Granulocyte % (Auto) 0, Neutrophils (%) (Auto) 55, Lymphocytes (%) (Auto) 31, Monocytes (%) (Auto) 6, Eosinophils (%) (Auto) 7, Basophils (%) (Auto) 1, Neutrophils # (Auto) 4.2, Lymphocytes # (Auto) 2.4, Monocytes # (Auto) 0.4, Eosinophils # (Auto) 0.6H, Basophils # (Auto) 0.1, Immature Granulocyte # (Auto) 0.0, Sodium Level 138, Potassium Level 3.9, Chlori de Level 109H, Carbon Dioxide Level 20L, Anion Gap 9, Blood Urea Nitrogen 12, Creatinine 0.95, Estimat Glomerular Filtration Rate 85, BUN/Creatinine Ratio 13, Glucose Level 137H, Calcium Level 9.3, Troponin I 0.714*H, Triglycerides Level 189H, Cholesterol Level 143, LDL Cholesterol Direct 97, VLDL Cholesterol 38, HDL Cholesterol 35L Radiology NAME: IRIS COPE [facility] REC#: [id number] PT STATUS: REG ER : [id number] PHYSICIAN: ASHLEY PULLIAM MD ADMIT DATE: 12/26/21/ER Signed Date of Exam:12/26/21 CHEST 1 VIEW, AP/PA ONLY INDICATION: Chest pain. AP view of the chest is obtained. FINDINGS: Heart size and pulmonary vascularity are within normal limits, and the lungs are clear, bilaterally. IMPRESSION: Unremarkable chest. Dictated by: Dictated on workstation # [id number] Dict: 12/26/21 1407 Trans: 12/26/21 1432 [id number] Interpreted by: ALEXI CHUN MD Electronically signed by: ALEXI CHUN MD 12/26/21 1432 ECG Impression ECG Initial ECG Rhythm: Normal Sinus A/P-Cardiology Assessment/Admission Diagnosis NSTEMI Tobaccoism - cessation advised Hiatal hernia Discussion and Recomendations NSTEMI - advise cardiac cath. Procedure, risks, benefits of cardiac cath with possible ad hoc coronary intervention discussed. He provides informed consent. Monitor lab Further recs will be based on his hospital course We would like to thank medical services for this consult FRANCISCA MURRAY Dec 26, 2021 15:49
[2021-12-26] MEDS ORDERED: morphine INJ 4 MG/ML 1 ML (VIAL/SYRINGE) IV PRN (16:45)
[2021-12-26] MEDS ORDERED: ONDANSETRON 4 MG/2 ML (SDV) Z0FRAN IV PRN (16:45)
[2021-12-26] MEDS ORDERED: MIDAZOLAM 5 MG/5 ML (VERSED) VIAL ONE (17:11)
[2021-12-26] MEDS ORDERED: LIDOCAINE 1% INJ 50 ML (XYLOCAINE) VIAL ONE (17:11)
[2021-12-26] MEDS ORDERED: fentaNYL INJ 100 MCG/2 ML AMP ONE (17:11)
[2021-12-26] MEDS ORDERED: HEParin (CATH LAB) 2,000 ML IV ONE (17:12)
[2021-12-26] MEDS ORDERED: NS IV 1000 ML 1,000 ML ONE (17:12)
[2021-12-26] MEDS: LACTATED RINGERS 1,000 ML IV SCH (17:15)
--- NOTE | 2021-12-26 17:16 | Consultation-Cardiology ---
HPI-Cardiology Cardiology Consultation: Date of Consultation 12/26/21 Time Seen by a Provider: 16:50 Date of Admission Attending Physician Sari Mason MD Admitting Physician Flaquita Trevizo MD Consulting Physician SHELLY MATSON MD, MA, FACP, FACC, FSCAI, CCDS HPI: Chief Complaint: Reason for Card consult: NSTEMI Mr. Kinney is a 71 yr old male admitted to ICU 4 from the ED with NSTEMI. He reports approx 4 days day ago he developed chest pressure, tightness across his chest. The discomfort would come on without r/t activity. He reports the pain would last from 3 minutes to as long as an hour and then resolve. He denies any assoc symptoms of n/v or diaphoresis. No c/o SOB. No c/o palpitations, syncope or near syncope. He reports he received nitro in the ED, which has resulted in complete resolution of his chest pain at this time. No c/o LE swelliing. He is currently pain free. Review of Systems-Cardiology Review of Systems Constitutional: No chills, No fever, No malaise, No tiredness Eyes: No vision change Ears/Nose/Throat: No epistaxis, No recent hearing loss Respiratory: As described under HPI Cardiovascular: As described under HPI Gastrointestinal: As described under HPI Genitourinary: No dysuria, No hematuria Musculoskeletal: no symptoms reported Skin: No rash on exposed areas, No ulcerations on exposed areas Psychiatric/Neurological: No anxiety, No depression, No seizure, No focal weakness, No syncope Hematologic: No bleeding abnormalities IID-Vozgtu-Rbiuai Hx Patient Social History Smoking Status: Current Everyday Smoker 2nd Hand Smoke Exposure: No Have you traveled recently?: No Alcohol Use?: No Pt feels they are or have been: No Tobacco type used: Cigarettes Past Medical History PMH As described under Assessment. Family Medical History Family Medical History: He reports brothers x 2 with heart dz Allergies and Home Medications Allergies Coded Allergies: No Known Drug Allergies (Unverified , 12/11/20) Patient Home Medication List Home Medication List Reviewed: Yes Pantoprazole Sodium (Protonix) 40 Mg Tablet.dr, 40 MG PO DAILY Prescribed by: ADRIEL VELIZ on 12/18/20 1200 Sucralfate (Carafate) 1 Gm Tablet, 1 GM PO ACHS Prescribed by: ADRIEL VELIZ on 12/18/20 1200 Physical Exam-Cardiology Physical Exam Vital Signs/I&O 12/26/21 12/26/21 12/26/21 13:14 15:53 15:58 Temp 36.7 Pulse 71 54 60 Resp 27 18 B/P (MAP) 156/92 (113) 181/91 Pulse Ox 98 O2 Delivery Room Air Capillary Refill : Less Than 3 Seconds Constitutional: AAO x 3, well-developed, well-nourished HEENT: PERRL, hearing is well preserved, oral hygience is good Neck: No carotid bruit; carotid pulses are 2 + bilaterally Respiratory: No accessory muscle use, No respiratory distress; chest expansion is symmetric, chest is bilaterally symmetric, lungs clear to auscultation Cardiovascular: regular rate-rhythm; No JVD; S1 and S2 Gastrointestinal: No tender; soft, round, audible bowel sounds Extremities: no lower extremity edema bilateral Neurologic/Psychiatric: other (moves all extremities) Skin: No rash on exposed areas, No ulcerations on exposed areas Data Review Labs Laboratory Tests 12/26/21 13:05: White Blood Count 7.7, Red Blood Count 4.65, Hemoglobin 15.8, Hematocrit 45, Mean Corpuscular Volume 96, Mean Corpuscular Hemoglobin 34, Mean Corpuscular Hemoglobin Concent 35, Red Cell Distribution Width 11.9, Platelet Count 206, Mean Platelet Volume 8.9L, Immature Granulocyte % (Auto) 0, Neutrophils (%) (Auto) 57, Lymphocytes (%) (Auto) 29, Monocytes (%) (Auto) 6, Eosinophils (%) (Auto) 7, Basophils (%) (Auto) 1, Neutrophils # (Auto) 4.4, Lymphocytes # (Auto) 2.3, Monocytes # (Auto) 0.5, Eosinophils # (Auto) 0.5H, Basophils # (Auto) 0.1, Immature Granulocyte # (Auto) 0.0, Prothrombin Time 13.3, INR Comment 1.0, Activated Partial Thromboplast Time 30, D-Dimer 0.33, Sodium Level 140, Po tassium Level 4.5, Chloride Level 108H, Carbon Dioxide Level 20L, Anion Gap 12, Blood Urea Nitrogen 12, Creatinine 1.02, Estimat Glomerular Filtration Rate 78, BUN/Creatinine Ratio 12, Glucose Level 112H, Calcium Level 9.8, Corrected Curt cium 9.5, Magnesium Level 2.2, Total Bilirubin 0.6, Aspartate Amino Transf (AST/SGOT) 25, Alanine Aminotransferase (ALT/SGPT) 30, Alkaline Phosphatase 61, Myoglobin 52.9, Troponin I 0.544*H, C-Reactive Protein High Sensitivity 0.47, B- Type Natriuretic Peptide 26.3, Total Protein 7.8, Albumin 4.4, Lipase 20 12/26/21 13:35: Influenza Type A (RT-PCR) Not Detected, Influenza Type B (RT-PCR) Not Detected, SARS-CoV-2 RNA (RT-PCR) Not Detected Laboratory Tests 12/26/21 13:05 A/P-Cardiology Assessment/Admission Diagnosis Acute NSTEMI Tobaccoism - cessation advised Hiatal hernia Discussion and Recomendations Advise cardiac cath. Procedure, risks, benefits of cardiac cath with possible ad hoc coronary intervention discussed. He provides informed consent. Monitor lab Further recs will be based on his hospital course We would like to thank Medical services for this consult SHELLY MATSON MD FACP FAC CCDS Dec 26, 2021 17:16
[2021-12-26] MEDS ORDERED: NITRO DRIP 25000 MCG/D5W 250 ML IV ONE (17:59)
[2021-12-26] MEDS ORDERED: HEParin 1000 UNIT/ML (10ML VIAL) FOR BOLUS ONE (17:59)
[2021-12-26] MEDS ORDERED: EPTIFIBATIDE DRIP 100 ML IV ONE (18:02)
[2021-12-26] MEDS ORDERED: ATROPINE INJECTION 1 MG/10 ML SYR (ABBOTT) ONE ×2 (18:24→20:56)
[2021-12-26] MEDS ORDERED: ACETAMINOPHEN 325 MG TABLET PO PRN (18:45)
[2021-12-26] MEDS ORDERED: PATIENT MAY USE OWN MEDS, ALL PO SCH (18:45)
--- NOTE | 2021-12-26 19:19 | CARDIAC CATHETERIZATION ---
DATE OF SERVICE: 12/26/2021 CARDIAC CATHETERIZATION AND CORONARY INTERVENTION REPORT The patient is a 71-year-old gentleman who presented with acute non-ST elevation myocardial infarction. He had had unstable symptoms for a day. Urgent cardiac catheterization was carried out after having obtained an informed consent for cardiac catheterization and possible ad hoc coronary intervention. DESCRIPTION OF PROCEDURE: He was brought to the cardiac catheterization laboratory. Right groin was prepared and draped in the usual sterile fashion. Lidocaine 1% was used for local anesthesia. Modified Seldinger technique was used to advance a 5-Taiwanese sheath in right femoral artery. A 5-Taiwanese JL3.5 catheter was used for left coronary angiography, 5-Taiwanese JR4 catheter for right coronary angiography, 5-Taiwanese pigtail catheter was used for left heart catheterization and left ventricular angiography. Subsequently, percutaneous intervention was carried out to the left circumflex and right coronary arteries and this is described below. PERCUTANEOUS INTERVENTION TO THE LEFT CIRCUMFLEX: The left circumflex was exhibiting 90% stenosis in its mid portion and there appeared to be some haziness distally, as well. We exchanged the sheath over a wire for a 6-Taiwanese sheath and used a 6-Taiwanese JL3.5 guide catheter to engage the right coronary artery and crossed the lesions in the left circumflex artery with a BMW wire and the tip was placed in the distal posterolateral. We stented the mid vessel segment with a Skypoint 3.0 x 12 mm stent that was deployed at 20 atmospheres. Subsequent angiography showed no significant residual stenosis at the stented segment and there appeared to be a 70% stenosis in the distal artery. This was stented with Skypoint 2.75 x 12 mm stent that was deployed at 20 atmospheres. Subsequent angiography reveals no significant residual stenosis in the left circumflex. PERCUTANEOUS INTERVENTION TO THE RIGHT CORONARY ARTERY: The right coronary artery is dominant and had a proximal lesion that was consistent with an unstable plaque and stenosis of up to approximately 70%. We engaged the right coronary artery with a 6-Taiwanese JR4 guide catheter. BMW wire was difficult to advance across the lesion. We chose a Choice PT Graphix wire and crossed the lesion on the tip of distal was placed in the distal vessel. We stented the segment with Skypoint 3.0 x 23 mm stent deployed at 20 atmospheres. Subsequent angiography revealed no significant residual stenosis and flow throughout the vessel is normal. The patient tolerated the procedure well. The sheath was sutured in place and the patient was transferred to the floor. He received a double bolus of Integrilin and Integrilin infusion throughout the procedure. He had received 324 mg of aspirin in the emergency room and 300 mg of Plavix in the emergency room. We gave additional 300 mg of Plavix after the coronary intervention. HEMODYNAMICS: Left ventricular end-diastolic pressure following coronary angiography was 8 mmHg. There is no significant pressure gradient on pullback across the aortic valve. Ascending aortic pressure was 113/54 with a mean of 77 mmHg. CORONARY ANGIOGRAPHY: Left main coronary artery is free of significant disease. Left anterior descending artery has 50% to 60% mid vessel stenosis. Left circumflex artery had 90% midvessel and 70% distal stenosis. The mid vessel stenosis stented with Skypoint 3.0 x 12 mm stent deployed at 20 atmospheres. The distal left circumflex artery was stented with 2.75 x 12 mm stent deployed at 20 atmospheres. The right coronary artery is dominant and had a fairly long lesion in its proximal portion with stenosis up to 70% and with angiographic characteristics of an unstable plaque. This lesion was stented with Skypoint 3.0 x 23 mm stent. There is no significant residual stenosis. LEFT VENTRICULAR ANGIOGRAPHY: Left ventricular angiography was carried out in the right anterior oblique projection. Global left ventricular systolic function is well preserved. Left ventricular ejection fraction approximately 50%. CONCLUSIONS: 1. Coronary artery disease. 2. Left anterior descending artery had 50 to 60% mid vessel stenosis. Left circumflex artery had two lesions. The mid left circumflex artery had 90% stenosis that was stented with Skypoint 3.0 x 12 mm stent. The distal left circumflex had a 70% stenosis that was stented with Skypoint 2.75 x 12 mm stent. Right coronary artery is dominant and had a 70% stenosis in its proximal portion with characteristics of unstable plaque. This was stented with Skypoint 3.0 x 23 mm stent. 3. Left ventricular end-diastolic pressure 8 mmHg. 4. Left ventricular ejection fraction 50%. DISCUSSION AND RECOMMENDATIONS: Dual antiplatelet therapy has been initiated. Beta-vijay therapy has been initiated. Statin therapy is being initiated. Further recommendation will be based on his hospital course. Job ID: [id number] DocumentID: [id number] Dictated Date: 12/26/2021 18:51:10 Wireless Watcher Date: 12/26/2021 19:18:22 Dictated By: SHELLY MATSON MD, MA, FACP, FACC,
[2021-12-26] MEDS: NS IV 1000 ML 1,000 ML IV SCH (19:22)
[2021-12-27] MEDS ORDERED: ENOXAPARIN 80 MG/0.8 ML (LOVENOX) SYR SC SCH (04:00)
[2021-12-27 04:37] LABS: BASOPHILS # (AUTO) 0.1 10^3/uL (0.0-0.1); BASOPHILS % (AUTO) 1 % (0-10); EOSINOPHILS # (AUTO) 0.6 10^3/uL (0.0-0.3); EOSINOPHILS % (AUTO) 7 % (0-10); HEMATOCRIT 41 % (40-54); HEMOGLOBIN 14.2 g/dL (13.3-17.7); LYMPHOCYTES # (AUTO) 2.4 10^3/uL (1.0-4.0); LYMPHOCYTES % (AUTO) 31 % (12-44); MEAN CORPUSCULAR HEMOGLOBIN 33 pg (25-34); MEAN CORPUSCULAR HGB CONC 35 g/dL (32-36); MEAN CORPUSCULAR VOLUME 96 fL (80-99); MEAN PLATELET VOLUME 9.3 fL (9.0-12.2); MONOCYTES # (AUTO) 0.4 10^3/uL (0.0-1.0); MONOCYTES % (AUTO) 6 % (0-12); NEUTROPHILS # (AUTO) 4.2 10^3/uL (1.8-7.8); NEUTROPHILS % (AUTO) 55 % (42-75); PLATELET COUNT 178 10^3/uL (130-400); WHITE BLOOD COUNT 7.7 10^3/uL (4.3-11.0)
[2021-12-27 04:55] LABS: POTASSIUM 3.9 MMOL/L (3.6-5.0)
[2021-12-27 04:56] LABS: CALCIUM 9.3 MG/DL (8.5-10.1)
[2021-12-27] MEDS: NS IV 1000 ML 1,000 ML IV SCH (04:57)
[2021-12-27 05:01] LABS: CREATININE SERUM 0.95 MG/DL (0.60-1.30)
[2021-12-27] MEDS ORDERED: KCL 20 MEQ TAB (K-DUR) PO SCH (06:00)
[2021-12-27] MEDS ORDERED: POTASSIUM CL 10MEQ/50ML IVPB 50 ML IV SCH (06:00)
[2021-12-27] MEDS ORDERED: MAGNESIUM 1 GM/100 ML IVPB 100 ML IV SCH (06:00)
[2021-12-27] MEDS: LACTATED RINGERS 1,000 ML IV SCH (06:46)
--- NOTE | 2021-12-27 08:03 | Progress Note - Cardiology ---
Cardiology SOAP Progress Note Subjective: Sitting up in chair at the bedside No c/o CP, SOB, palpitations or groin discomfort Wants to go home Objective: I&O/Vital Signs 12/26/21 12/26/21 12/26/21 12/27/21 21:00 22:00 23:00 00:00 Pulse 60 59 55 67 Resp 20 13 13 20 B/P (MAP) 151/80 145/78 143/85 129/91 Pulse Ox 98 97 97 99 O2 Delivery Room Air Room Air Room Air Room Air 12/27/21 12/27/21 12/27/21 12/27/21 01:00 01:00 02:00 03:00 Pulse 60 60 76 63 Resp 18 19 30 B/P (MAP) 133/74 136/79 126/63 Pulse Ox 97 97 94 O2 Delivery Room Air Room Air Room Air 12/27/21 12/27/21 12/27/21 12/27/21 04:00 05:00 06:00 07:28 Temp 36.4 Pulse 52 55 54 Resp 16 20 18 B/P (MAP) 123/61 125/57 119/63 Pulse Ox 96 96 97 O2 Delivery Room Air Room Air Room Air 12/27/21 00:00 Intake Total 0 ml Output Total 250 ml Balance -250 ml Side: right Groin site without hematoma: Yes Condition: DP/PT pulses palpable, extremity w/d/p Bruising: mild bruising Constitutional: AAO x 3, well-developed, well-nourished Respiratory: No accessory muscle use, No respiratory distress; chest expansion is symmetric, chest is bilaterally symmetric, lungs clear to auscultation Cardiovascular: regular rate-rhythm; No JVD; S1 and S2 Gastrointestional: No tender; soft, round, audible bowel sounds Extremities: no lower extremity edema bilateral Neurologic/Psychiatric: other (moves all extremities) Skin: No rash on exposed areas, No ulcerations on exposed areas Results/Procedures: Labs Laboratory Tests 12/26/21 13:05: White Blood Count 7.7, Red Blood Count 4.65, Hemoglobin 15.8, Hematocrit 45, Mean Corpuscular Volume 96, Mean Corpuscular Hemoglobin 34, Mean Corpuscular Hemoglobin Concent 35, Red Cell Distribution Width 11.9, Platelet Count 206, Mean Platelet Volume 8.9L, Immature Granulocyte % (Auto) 0, Neutrophils (%) (Auto) 57, Lymphocytes (%) (Auto) 29, Monocytes (%) (Auto) 6, Eosinophils (%) (Auto) 7, Basophils (%) (Auto) 1, Neutrophils # (Auto) 4.4, Lymphocytes # (Auto) 2.3, Monocytes # (Auto) 0.5, Eosinophils # (Auto) 0.5H, Basophils # (Auto) 0.1, Immature Granulocyte # (Auto) 0.0, Prothrombin Time 13.3, INR Comment 1.0, Activated Partial Thromboplast Time 30, D-Dimer 0.33, Sodium Level 140, Potassium Level 4.5, Chloride Level 108H, Carbon Dioxide Level 20L, Anion Gap 12, Blood Urea Nitrogen 12, Creatinine 1.02, Estimat Glomerular Filtration Rate 78, BUN/Creatinine Ratio 12, Glucose Level 112H, Calcium Level 9.8, Corrected Calcium 9.5, Magnesium Level 2.2, Total Bilirubin 0.6, Aspartate Amino Transf (AST/SGOT) 25, Alanine Aminotransferase (ALT/SGPT) 30, Alkaline Phosphatase 61, Myoglobin 52.9, Troponin I 0.544*H, C-Reactive Protein High Sensitivity 0.47, B- Type Natriuretic Peptide 26.3, Total Protein 7.8, Albumin 4.4, Lipase 20 12/26/21 13:35: Influenza Type A (RT-PCR) Not Detected, Influenza Type B (RT-PCR) Not Detected, SARS-CoV-2 RNA (RT-PCR) Not Detected 12/27/21 04:23: White Blood Count 7.7, Red Blood Count 4.26L, Hemoglobin 14.2, Hematocrit 41, Mean Corpuscular Volume 96, Mean Corpuscular Hemoglobin 33, Mean Corpuscular Hem oglobin Concent 35, Red Cell Distribution Width 12.0, Platelet Count 178, Mean Platelet Volume 9.3, Immature Granulocyte % (Auto) 0, Neutrophils (%) (Auto) 55, Lymphocytes (%) (Auto) 31, Monocytes (%) (Auto) 6, Eosinophils (%) (Auto) 7, Basophils (%) (Auto) 1, Neutrophils # (Auto) 4.2, Lymphocytes # (Auto) 2.4, Monocytes # (Auto) 0.4, Eosinophils # (Auto) 0.6H, Basophils # (Auto) 0.1, Immature Granulocyte # (Auto) 0.0, Sodium Level 138, Potassium Level 3.9, Chlori de Level 109H, Carbon Dioxide Level 20L, Anion Gap 9, Blood Urea Nitrogen 12, Creatinine 0.95, Estimat Glomerular Filtration Rate 85, BUN/Creatinine Ratio 13, Glucose Level 137H, Calcium Level 9.3, Troponin I 0.714*H, Triglycerides Level 189H, Cholesterol Level 143, LDL Cholesterol Direct 97, VLDL Cholesterol 38, HDL Cholesterol 35L Laboratory Tests 12/26/21 13:05 12/27/21 04:23 A/P: Assessment: Acute NSTEMI - Coronary artery disease. Left anterior descending artery had 50 to 60% mid vessel stenosis. Left circumflex artery had two lesions. The mid left circumflex artery had 90% stenosis that was stented with Skypoint 3.0 x 12 mm stent. The distal left circumflex had a 70% stenosis that was stented with Skypoint 2.75 x 12 mm stent. Right coronary artery is dominant and had a 70% stenosis in its proximal portion with characteristics of unstable plaque. This was stented with Skypoint 3.0 x 23 mm stent. Left ventricular end-diastolic pressure 8 mmHg. Left ventricular ejection fraction 50%. Tobaccoism - cessation advised Hiatal hernia Plan: NSTEMI S/P cardiac cath with successful coronary intervention Continue current medication regimen Discussed rationale for medications - verbalizes understanding Out pt f/u advisFRANCISCA Mars Dec 27, 2021 08:03
[2021-12-27] MEDS ORDERED: CLOP75TA28 PO (08:41)
[2021-12-27] MEDS ORDERED: MTP25TSR PO (08:41)
[2021-12-27] MEDS ORDERED: ATOR40TA PO (08:41)
[2021-12-27] MEDS ORDERED: ASPI81TA64 PO (08:41)
[2021-12-27] MEDS ORDERED: ASPIRIN 81 MG CHEW (CHILDREN'S ASA) PO SCH (09:00)
[2021-12-27] MEDS ORDERED: ASPIRIN E.C. 81 MG (ECOTRIN) TAB PO SCH (09:00)
[2021-12-27] MEDS ORDERED: CLOPIDOGREL 75 MG (PLAVIX) TABLET PO SCH (09:00)
--- NOTE | 2021-12-27 11:53 | Short Stay Summary ---
Discharge Summary Hospital Course Was the Problem List Reviewed?: Yes Problems/Dx: (1) NSTEMI (non-ST elevated myocardial infarction) Status: Resolved Assessment & Plan: Pt admitted and had cardiac cath the same evening, had stenting of mid and distal left circumflex and RCA, was started on aspirin, plavix, statin and beta vijay to continue on d/c. Final Diagnosis: See problem list Hospital Course Date of Admission: Dec 26, 2021 at 14:40 Admission Diagnosis : Family Physician/Provider: Flaquita Trevizo MD Date of Discharge: 12/27/21 Discharge Diagnosis: See problem list Hospital Course: See problem list Labs and Pending Lab Test: Laboratory Tests 12/26/21 13:05: White Blood Count 7.7, Red Blood Count 4.65, Hemoglobin 15.8, Hematocrit 45, Mean Corpuscular Volume 96, Mean Corpuscular Hemoglobin 34, Mean Corpuscular Hemoglobin Concent 35, Red Cell Distribution Width 11.9, Platelet Count 206, Mean Platelet Volume 8.9L, Immature Granulocyte % (Auto) 0, Neutrophils (%) (Auto) 57, Lymphocytes (%) (Auto) 29, Monocytes (%) (Auto) 6, Eosinophils (%) (Auto) 7, Basophils (%) (Auto) 1, Neutrophils # (Auto) 4.4, Lymphocytes # (Auto) 2.3, Monocytes # (Auto) 0.5, Eosinophils # (Auto) 0.5H, Basophils # (Auto) 0.1, Immature Granulocyte # (Auto) 0.0, Prothrombin Time 13.3, INR Comment 1.0, Activated Partial Thromboplast Time 30, D-Dimer 0.33, Sodium Level 140, Potassium Level 4.5, Chloride Level 108H, Carbon Dioxide Level 20L, Anion Gap 12, Blood Urea Nitrogen 12, Creatinine 1.02, Estimat Glomerular Filtration Rate 78, BUN/Creatinine Ratio 12, Glucose Level 112H, Calcium Level 9.8, Corrected Calcium 9.5, Magnesium Level 2.2, Total Bilirubin 0.6, Aspartate Amino Transf (AST/SGOT) 25, Alanine Aminotransferase (ALT/SGPT) 30, Alkaline Phosphatase 61, Myoglobin 52.9, Troponin I 0.544*H, C-Reactive Protein High Sensitivity 0.47, B- Type Natriuretic Peptide 26.3, Total Protein 7.8, Albumin 4.4, Lipase 20 3/2/22 13:35: Influenza Type A (RT-PCR) Not Detected, Influenza Type B (RT-PCR) Not Detected, SARS-CoV-2 RNA (RT-PCR) Not Detected 12/27/21 04:23: White Blood Count 7.7, Red Blood Count 4.26L, Hemoglobin 14.2, Hematocrit 41, Mean Corpuscular Volume 96, Mean Corpuscular Hemoglobin 33, Mean Corpuscular Hemoglobin Concent 35, Red Cell Distribution Width 12.0, Platelet Count 178, Mean Platelet Volume 9.3, Immature Granulocyte % (Auto) 0, Neutrophils (%) (Auto) 55, Lymphocytes (%) (Auto) 31, Monocytes (%) (Auto) 6, Eosinophils (%) (Auto) 7, Basophils (%) (Auto) 1, Neutrophils # (Auto) 4.2, Lymphocytes # (Auto) 2.4, Monocytes # (Auto) 0.4, Eosinophils # (Auto) 0.6H, Basophils # (Auto) 0.1, Immature Granulocyte # (Auto) 0.0, Sodium Level 138, Potassium Level 3.9, Chloride Level 109H, Carbon Dioxide Level 20L, Anion Gap 9, Blood Urea Nitrogen 12, Creatinine 0.95, Estimat Glomerular Filtration Rate 85, BUN/Creatinine Ratio 13, Glucose Level 137H, Calcium Level 9.3, Troponin I 0.714*H, Triglycerides Level 189H, Cholesterol Level 143, LDL Cholesterol Direct 97, VLDL Cholesterol 38, HDL Cholesterol 35L Home Meds Active Children's Aspirin (Aspirin) 81 Mg Tab.chew 81 Mg PO DAILY Metoprolol Succinate 25 Mg Tab.er.24h 25 Mg PO DAILY Lipitor (Atorvastatin Calcium) 40 Mg Tablet 40 Mg PO HS Clopidogrel (Clopidogrel Bisulfate) 75 Mg Tablet 75 Mg PO DAILY Protonix (Pantoprazole Sodium) 40 Mg Tablet.dr 40 Mg PO DAILY Carafate (Sucralfate) 1 Gm Tablet 1 Gm PO ACHS Assessment/Pt Instructions Follow up with Cardiology as directed, follow up with primary physician within a week of discharge. Discharge Instructions Discharge Diet: Cardiac Diet Activity as Tolerated: No (as instructed by Cardiology post-cath) Discharge Physical Examination General Appearance: Alert, No Acute Distress Respiratory: Clear to Auscultation, Normal Air Movement Cardiovascular: Regular Rate, No Murmurs Abdominal: Normal Bowel Sounds, Soft Extremities: No Edema Neuro: Normal Speech Psych/Mental Status: Mental Status NL, Mood NL Allergies: Coded Allergies: No Known Drug Allergies (Unverified , 12/11/20) OLEG RYAN MD Dec 27, 2021 11:53
--- NOTE | 2021-12-27 17:42 | Progress Note - Cardiology ---
Cardiology SOAP Progress Note Subjective: No cp or palp or syncope or shortness of breath No groin or leg discomfort. No leg discoloration No n/v/d No focal weakness Feels well and wishes to go home Objective: I&O/Vital Signs 12/27/21 12/27/21 12/27/21 12/27/21 06:00 07:00 07:00 07:28 Temp 36.4 Pulse 54 50 50 Resp 18 18 B/P (MAP) 119/63 121/61 Pulse Ox 97 96 O2 Delivery Room Air Room Air 12/27/21 12/27/21 12/27/21 08:00 09:00 10:30 Pulse 54 57 Resp 18 18 B/P (MAP) 114/71 145/82 Pulse Ox 97 97 O2 Delivery Room Air Room Air 12/26/21 23:59 Intake Total 0 ml Output Total 250 ml Balance -250 ml Side: right Groin site without hematoma: Yes Condition: DP/PT pulses palpable, extremity w/d/p Bruising: mild bruising Constitutional: AAO x 3, well-developed, well-nourished Respiratory: No accessory muscle use, No respiratory distress; chest expansion is symmetric, chest is bilaterally symmetric, lungs clear to auscultation Cardiovascular: regular rate-rhythm; No JVD; S1 and S2 Gastrointestional: No tender; soft, round, audible bowel sounds Extremities: no lower extremity edema bilateral Neurologic/Psychiatric: other (moves all extremities) Skin: No rash on exposed areas, No ulcerations on exposed areas Results/Procedures: Labs Laboratory Tests 12/27/21 04:23: White Blood Count 7.7, Red Blood Count 4.26L, Hemoglobin 14.2, Hematocrit 41, Mean Corpuscular Volume 96, Mean Corpuscular Hemoglobin 33, Mean Corpuscular Hemoglobin Concent 35, Red Cell Distribution Width 12.0, Platelet Count 178, Mean Platelet Volume 9.3, Immature Granulocyte % (Auto) 0, Neutrophils (%) (A uto) 55, Lymphocytes (%) (Auto) 31, Monocytes (%) (Auto) 6, Eosinophils (%) (Auto) 7, Basophils (%) (Auto) 1, Neutrophils # (Auto) 4.2, Lymphocytes # (Auto) 2.4, Monocytes # (Auto) 0.4, Eosinophils # (Auto) 0.6H, Basophils # (Auto) 0.1, Immature Granulocyte # (Auto) 0.0, Sodium Level 138, Potassium Level 3.9, Chloride Level 109H, Carbon Dioxide Level 20L, Anion Gap 9, Blood Urea Nitrogen 12, Creatinine 0.95, Estimat Glomerular Filtration Rate 85, BUN/Creatinine Ratio 13, Glucose Level 137H, Calcium Level 9.3, Troponin I 0.714*H, Triglycerides Level 189H, Cholesterol Level 143, LDL Cholesterol Direct 97, VLDL Cholesterol 38, HDL Cholesterol 35L Laboratory Tests 12/26/21 13:05 12/27/21 04:23 A/P: Assessment: Acute NSTEMI - Coronary artery disease. Left anterior descending artery had 50 to 60% mid v essel stenosis. Left circumflex artery had two lesions. The mid left circumflex artery had 90% stenosis that was stented with Skypoint 3.0 x 12 mm stent. The distal left circumflex had a 70% stenosis that was stented with Skypoint 2.75 x 12 mm stent. Right coronary artery is dominant and had a 70% stenosis in its proximal portion with characteristics of unstable plaque. This was stented with Skypoint 3.0 x 23 mm stent. Left ventricular end-diastolic pressure 8 mmHg. Left ventricular ejection fraction 50%. Tobaccoism - cessation advised Hiatal hernia Plan: I had a detailed discussion with him regarding his findings and interventions undertaken Risk factor mod discussed and advised Advised compliance with current medication regimen Discussed rationale for medications - verbalizes understanding Out pt f/u advised Questions answered SHELLY MATSON MD [facility] Dec 27, 2021 17:42
== END 2021-12-27 10:30 | disposition home or self-care (01) | DRG 247 ==
LOC: EDUNIT# 13:12 → ER 13:13 → ICU 14:40
PROVIDERS: ADMIT Family Medicine; ATTEND Family Medicine
PROC: 027136Z Dilation of Coronary Artery, Two Arteries with Three Drug-eluting Intraluminal Devices, Percutaneous Approach (ICD-10-PCS; principal; 2021-12-26)
PROC: 4A023N7 Measurement of Cardiac Sampling and Pressure, Left Heart, Percutaneous Approach (ICD-10-PCS; 2021-12-26)
PROC: B2111ZZ Fluoroscopy of Multiple Coronary Arteries using Low Osmolar Contrast (ICD-10-PCS; 2021-12-26)
PROC: B2151ZZ Fluoroscopy of Left Heart using Low Osmolar Contrast (ICD-10-PCS; 2021-12-26)
DX: I21.4 Non-ST elevation (NSTEMI) myocardial infarction (principal); I25.10 Atherosclerotic heart disease of native coronary artery without angina pectoris; I10 Essential (primary) hypertension; E78.5 Hyperlipidemia, unspecified; E03.9 Hypothyroidism, unspecified; E11.9 Type 2 diabetes mellitus without complications; F17.210 Nicotine dependence, cigarettes, uncomplicated; K44.9 Diaphragmatic hernia without obstruction or gangrene; Z20.822 Contact with and (suspected) exposure to COVID-19
CPT/HCPCS: 36415; 71045; 80048; 80053; 80061; 83690; 83735; 83874; 83880; 84484; 85025; 85379; 85610; 85730; 86141; 87636; 93005; 93041; 93458